=== PATIENT | female | born 1970 ===

== ENCOUNTER 2016-12-10 16:16 | Observation (INO) | payer MEDICAID, OTHER ==
--- NOTE | 2016-12-10 16:48 | ED PDOC ---
Arrival/HPI - General Historian: Patient - General Time Seen by Provider: 12/10/16 16:34 - History of Present Illness Narrative History of Present Illness (Text): 12/10/16 16:41 46 y/o female, pmh including htn/dm/cervical cancer/UTI/PE (resolved)/ pericardial effusion, nkda, c/o lt. sided hip pain started today. Pt. stated that she has lt. hip pain started today, no urinary symptoms, no fever or chills , aggravated by movement and walking, no numbness or tingling, no urinary or bowel incontinence or retention, no other medical or psychological complaints. (Travon Medina) Past Medical History - Provider Review Nursing Documentation Reviewed: Yes - Infectious Disease Hx of Infectious Diseases: None - Tetanus Immunization Tetanus Immunization: Unknown - Past Medical History Past Medical History: No Previous - Cardiac Hx Hypertension: Yes Hx Pacemaker: No - Pulmonary Hx Respiratory Disorders: Yes Hx Pulmonary Embolism: Yes Other/Comment: Pulmonary Emboli - Neurological Hx Paralysis: No - HEENT Hx HEENT Disorder: No - Renal Hx Renal Disorder: Yes Other/Comment: RENAL STENT. HX: HYDRONEPHROSIS BILATERAL"MORE CONCERNING ON THE LEFT" - Endocrine/Metabolic Hx Endocrine Disorders: Yes Hx Diabetes Mellitus Type 1: Yes - Hematological/Oncological Hx Blood Transfusions: Yes Hx Blood Transfusion Reaction: No - Integumentary Hx Dermatological Disorder: No - Musculoskeletal/Rheumatological Hx Musculoskeletal Disorders: No - Gastrointestinal Hx Gastrointestinal Disorders: Yes Hx Colitis: Yes Hx Gastritis: Yes Hx Hemorrhoids: Yes Other/Comment: hemangioma to liver - Genitourinary/Gynecological Hx Genitourinary Disorders: Yes Hx Cervical Cancer: Yes (RADIATION AND CHEMO ONLY-NO SURGERY) Hx Urinary Tract Infection: Yes Other/Comment: Vaginal tumor cancer with radiation - Psychiatric Hx Psychophysiologic Disorder: No Hx Substance Use: No - Past Surgical History Past Surgical History: No Previous - Surgical History Hx Tubal Ligation: Yes Other/Comment: kidney surgery - Anesthesia Hx Anesthesia Reactions: Yes (VOMITING) Hx Malignant Hyperthermia: No - Suicidal Assessment Feels Threatened In Home Enviroment: No Family/Social History - Physician Review Nursing Documentation Reviewed: Yes Family/Social History: Unknown Family HX Smoking Status: Never Smoked Hx Alcohol Use: No Hx Substance Use: No Hx Substance Use Treatment: No Allergies/Home Meds Allergies/Adverse Reactions: Allergies No Known Allergies Allergy (Verified 12/10/16 16:43) Home Medications: Home Meds Medication Instructions Recorded Confirmed Insulin Aspart Prot/Insuln Asp 10 units SC TID 11/12/15 12/10/16 [Novolog Mix 70-30 Vial] Review of Systems - Review of Systems Constitutional: absent: Fatigue, Fevers Eyes: absent: Vision Changes ENT: absent: Hearing Changes Respiratory: absent: SOB, Cough Cardiovascular: absent: Chest Pain Gastrointestinal: absent: Abdominal Pain, Nausea, Vomiting Musculoskeletal: Arthralgias, Myalgias. absent: Back Pain, Neck Pain, Joint Swelling Skin: absent: Rash, Pruritis, Skin Lesions, Laceration Neurological: absent: Headache, Dizziness, Focal Weakness, Gait Changes, Speech Changes, Facial Droop Physical Exam Temperature: Afebrile Blood Pressure: Hypertensive Pulse: Regular Respiratory Rate: Normal Appearance: Positive for: Well-Appearing, Non-Toxic, Comfortable Pain Distress: Moderate Mental Status: Positive for: Alert and Oriented X 3 - Systems Exam Head: Present: Atraumatic, Normocephalic Pupils: Present: PERRL Extroacular Muscles: Present: EOMI Conjunctiva: Present: Normal Mouth: Present: Moist Mucous Membranes Neck: Present: Normal Range of Motion Respiratory/Chest: Present: Clear to Auscultation, Good Air Exchange. No: Respiratory Distress, Accessory Muscle Use Cardiovascular: Present: Regular Rate and Rhythm, Normal S1, S2. No: Murmurs Abdomen: Present: Normal Bowel Sounds. No: Tenderness, Distention, Peritoneal Signs, Rebound, Guarding Back: Present: Normal Inspection. No: CVA Tenderness, Midline Tenderness, Paraspinal Tenderness, Pain with Leg Raise Upper Extremity: Present: Normal Inspection. No: Cyanosis, Edema Lower Extremity: Present: Normal Inspection, Other (mild +ttp on the lt. hip region with no visible rash plus no deformity, no crepitus, fully active and passive movement without limitation, no limping when walking. ). No: Edema Neurological: Present: GCS=15, CN II-XII Intact, Speech Normal Skin: Present: Warm, Dry, Normal Color. No: Rashes Psychiatric: Present: Alert, Oriented x 3, Normal Insight, Normal Concentration Vital Signs Temp Pulse Resp BP Pulse Ox 12/10/16 20:55 71 16 151/99 H 100 12/10/16 19:35 78 16 185/95 H 100 12/10/16 16:46 98.8 F 95 H 18 162/92 H 98 Medical Decision Making - Lab Interpretations I have reviewed the lab results: Yes Interpretation: Abnormal lab values (K+ 5.4, Cl 108, BUN 27, Creatine 1.5, hgb 8.2, +UTI) - RAD Interpretation Flight Radio Operator: Radiologist - EKG Interpretation Interpreted by ED Physician: Yes Type: 12 lead EKG ED Course and Treatment: I was available for consultation during PA evaluation. The chart reviewed by me , and I agree with disposition. The documented history was done by the physician radiology equipment servicer. The documented physical exam was done by the physician radiology equipment servicer. The documented procedures were done by the physician radiology equipment servicer. (Raúl Griffin) 12/10/16 16:53 -labs/ua -IV toradol/IVF -observe and reassess 12/10/16 19:39 -Labs show -Urinalysis show +leuk, IV rocephin ordered. -EKG: NSR @ 71 BPM, no ST elevation or depression, no T wave inversion. -Kayaxylate ordered. -Pt. has no pmd to follow up, anemia likely due to the chronic renal disease or board certified family physician, borderline anemia for transfusion. -I discussed with Dr. Ness and the medical social worker Dr. Jos Howard which they are awared of the care, discussed labs, agreed on the admission. -I discussed with Dr. Griffin and he agreed on the admission order. 12/10/16 19:49 (Travon Medina) - Lab Interpretations Lab Results: 12/10/16 17:55 12/10/16 17:55 Lab Results 12/10/16 19:00: Urine Color Yellow, Urine Appearance Sl cloudy, Urine pH 6.0, Ur Specific [place] 1.020, Urine Protein 100 H, Urine Glucose (UA) Negative, Urine Ketones Negative, Urine Blood Large H, Urine Nitrate Negative, Urine Bilirubin Negative, Urine Urobilinogen 0.2, Ur Leukocyte Esterase Trace H, Urine RBC Tntc, Urine WBC 2 - 5, Ur Epithelial Cells 6 - 8, Urine Bacteria Trace 12/10/16 17:55: Sodium 139, Potassium 5.4 H, Chloride 108 H, Carbon Dioxide 25, Anion Gap 11, BUN 27 H, Creatinine 1.5 H, Est GFR ( Amer) 45, Est GFR ( Non-Af Amer) 38, Random Glucose 208 H, Calcium 9.5, Total Bilirubin 0.4, AST 25 , ALT 21, Alkaline Phosphatase 96, Total Protein 7.4, Albumin 3.8, Globulin 3.6 , Albumin/Globulin Ratio 1.1 12/10/16 17:55: WBC 4.2 L, RBC 3.65, Hgb 8.2 L, Hct 27.0 L, MCV 74.0 L, MCH 22.5 L, MCHC 30.4 L, RDW 15.5 H, Plt Count 168, MPV 11.2 H, Gran % 52.9, Lymph % (Auto) 35.8 H, [place] % (Auto) 6.6 H, Eos % (Auto) 4.5, Baso % (Auto) 0.2, Gran # 2.23, Lymph # 1.5, [place] # 0.3, Eos # 0.2, Baso # 0.01 - RAD Interpretation Radiology Orders: 12/10/16 19:06 CHEST PORTABLE [RAD] Stat 12/10/16 19:39 Hip Bilateral [HIP MIN 3V W/ PELVIS SILVIA] [RAD] Stat no active disease. (Travon Medina) - EKG Interpretation EKG Interpretation (Text): 12/10/16 19:39 NSR @ 71 BPM, no ST elevation or depression, no T wave inversion. (Travon Medina) - Medication Orders Current Medication Orders: Acetaminophen (Tylenol 325mg Tab) 650 mg PO Q6H PRN PRN Reason: Fever >100.4 F Albuterol Sulfate (Albuterol 0.083% Inhal Cyn (2.5 Mg/3 Ml) Ud) 2.5 mg IH Q2H PRN PRN Reason: Shortness of Breath Atorvastatin Calcium (Lipitor) 20 mg PO HS PORSHA Last Admin: 12/10/16 22:54 Dose: 20 mg Famotidine (Pepcid) 20 mg PO BID PORSHA Last Admin: 12/11/16 11:03 Dose: 20 mg Sodium Chloride (Sodium Chloride 0.9%) 1,000 mls @ 100 mls/hr IV .Q10H PORSHA Last Admin: 12/10/16 20:55 Dose: 100 mls/hr Insulin Human Lispro (Humalog) 0 units SC ACHS PORSHA PRN Reason: Protocol Last Admin: 12/11/16 13:10 Dose: 3 units Metoprolol Tartrate (Lopressor) 100 mg PO BID COUNT INCLUDES THE [facility] Last Admin: 12/11/16 11:02 Dose: 100 mg Ondansetron HCl (Zofran Inj) 4 mg IVP Q6H PRN PRN Reason: Nausea/Vomiting Last Admin: 12/11/16 05:13 Dose: 4 mg Polysaccharide Iron Complex (Ferrex-150) 150 mg PO BID COUNT INCLUDES THE [facility] Last Admin: 12/11/16 11:00 Dose: 150 mg Senna/Docusate Sodium (Senokot S 50 Mg-8.6 Mg) 1 tab PO DAILY COUNT INCLUDES THE [facility] Last Admin: 12/11/16 11:04 Dose: 1 tab Tamsulosin HCl (Flomax) 0.4 mg PO DAILY COUNT INCLUDES THE [facility] Last Admin: 12/11/16 11:00 Dose: 0.4 mg Tramadol HCl (Ultram) 50 mg PO Q8H PRN PRN Reason: Pain, moderate (4-7) Discontinued Medications Sodium Chloride (Sodium Chloride 0.9%) 500 mls @ 999 mls/hr IV .Q31M STA Stop: 12/10/16 17:19 Last Admin: 12/10/16 17:59 Dose: 999 mls/hr Ceftriaxone Sodium (Rocephin 1 Gram Ivpb) 1 gm in 100 mls @ 200 mls/hr IVPB STAT STA PRN Reason: Protocol Stop: 12/10/16 20:06 Last Admin: 12/10/16 20:55 Dose: 200 mls/hr Ketorolac Tromethamine (Toradol) 30 mg IVP STAT STA Stop: 12/10/16 16:50 Last Admin: 12/10/16 19:00 Dose: 30 mg Metoprolol Tartrate (Lopressor) 100 mg PO ONCE ONE Stop: 12/10/16 22:36 Last Admin: 12/10/16 22:54 Dose: 100 mg Sodium Polystyrene Sulfonate (Kayexalate Oral Susp) 15 gm MT STAT STA Stop: 12/10/16 19:07 Last Admin: 12/10/16 19:35 Dose: 15 gm - PA / PRODUCT DEVELOPMENT CHEMIST / Resident Statement / has reviewed & agrees with the documentation as recorded. Disposition/Present on Arrival - Present on Arrival Any Indicators Present on Arrival: No History of DVT/PE: Yes History of Uncontrolled Diabetes: Yes Urinary Catheter: No History Surgical Site Infection Following: None - Disposition Have Diagnosis and Disposition been Completed?: Yes Disposition Time: 16:53 Patient Plan: Admission - Disposition Diagnosis: Anemia, Dehydration, Renal insufficiency, Hyperkalemia Disposition: HOSPITALIZED Patient Problems: Current Active Problems Problem Status Onset Anemia Acute Dehydration Acute Hyperkalemia Acute Renal insufficiency Acute Condition: STABLE
[2016-12-10] MEDS ORDERED: Sodium Chloride 0.9% 500 ML IV STA (16:49)
[2016-12-10 18:02] LABS: ADD MANUAL DIFF? NO
[2016-12-10 18:07] LABS: BASO # 0.01 K/mm3 (0.0-2.0); BASO % 0.2 % (0.0-3.0); EOS # 0.2 (0.0-0.7); EOS % 4.5 % (1.5-5.0); GRAN # 2.23 (1.4-6.5); GRAN % 52.9 % (50.0-68.0); LYMPH # 1.5 (1.2-3.4); LYMPH % 35.8 % (22.0-35.0); MEAN CORPUSCULAR HEMOGLOBIN 22.5 pg (25.0-35.0); MEAN CORPUSCULAR HGB CONC 30.4 g/dl (31.0-37.0); MEAN PLATELET VOLUME 11.2 fl (7.0-11.0); MONO # 0.3 (0.1-0.6); MONO % 6.6 % (1.0-6.0); PLATELET COUNT 168 10^3/uL (120.0-450.0); RED CELL DISTRIBUTION WIDTH 15.5 % (11.5-14.5); WHITE BLOOD COUNT 4.2 10^3/ul (4.5-11.0)
[2016-12-10 18:45] LABS: ALB/GLOB RATIO 1.1 (1.1-1.8); BILIRUBIN,TOTAL 0.4 mg/dL (0.2-1.3); CALCIUM 9.5 mg/dL (8.4-10.5); POTASSIUM 5.4 mmol/L (3.6-5.0); TOTAL PROTEIN 7.4 g/dL (5.8-8.3)
[2016-12-10] MEDS ORDERED: Sod Polystyrene Sulf 15 gm/60 ml Oral Susp PR STA (19:06)
[2016-12-10 19:19] LABS: URINE BILIRUBIN NEGATIVE (NEGATIVE); URINE BLOOD LARGE (NEGATIVE); URINE GLUCOSE (UA) NEGATIVE (NEGATIVE); URINE KETONE NEGATIVE (NEGATIVE); URINE LEUKOCYTE ESTERASE TRACE Leu/uL (NEGATIVE); URINE PROTEIN 100 mg/dL (<30 mg/dL); URINE UROBILINOGEN 0.2 E.U./dL (<1 E.U./dL)
[2016-12-10 19:20] LABS: URINE APPEARANCE SL CLOUDY (CLEAR); URINE COLOR YELLOW (YELLOW)
[2016-12-10] MEDS ORDERED: Albuterol 0.083% Inhal Sol (2.5 mg/3 mL) UD IH PRN (19:36)
[2016-12-10] MEDS ORDERED: cefTRIAXone 1 gm 1 GM/100 ML BAG IVPB STA (19:37)
--- NOTE | 2016-12-10 19:44 | CP.PCM.HP ---
Addendum entered and electronically signed by Jos Nieves DO 12/10/16 20:37: Previous CT Scan from 07/03 shows severe bilateral hydronephroses s/p b/l ureteral stents Hepatic mass identified; no change in size from previous and has been diagnosed in the past as a benign cavernous hemanioma Patient has IVC Filter as well Original Note: <Jos Nieves - Last Filed: 12/10/16 20:11> History of Present Illness - History of Present Illness History of Present Illness: CC: Left Hip Pain and Flank Pain, Nausea/Vomiting x1 This is a 46yo F w/ a PMhx of Bilateral hydronephrosis CKD stage 2; Anemia iron deficiency, Rectosigmoid AVM and lower GI bleed; 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 The patient states that this pain feels different than when she has renal calculi and infections which she has had in the past, but still has flank pain as well. She rates the pain as 4/10, is still able to ambulate without issue, describes it has a dull non radiating pain. She also states she feels nauseus and has vomited x1 NBNB. She denies all other symptoms; denies fevers/chilla, ANGELA, CP, SOB, abdominal pain, diarrhea, dysuria/freq/urg, or lower extremity pain/swelling. Denies blood per rectum but has also not been taking her iron pills, or losartan for 6+ months; also confirmed with notes from outpatient [facility]. PMhx: Bilateral hydronephrosis CKD stage 2; Rectosigmoid AVM and lower GI bleed ; Squamous cell carcinoma of the cervix s/p chemoradiotherapy and conization in 2016 still with uterus and ovaries, DM on insulin, HTN, gastritis and chronic non-compliance, anemia iron deficiency Surgeries: tubal ligation, colonoscopy to fix rectosigmoid AVM, conization of cervix Famhx: denies Meds: Insulin 10 units TID before meals, Losartan 100mg (not taking), Niferux ( not taking), Simvastatin (not taking) checked records at [facility] outpatient clinic. Patient has history of chronic medical non compliance Allergies: Denies Social: Never smoked, no EtOH, denies any illicit drug use, lives at home unemployed taking care of 4 children; only been 4 times Present on Admission - Present on Admission Any Indicators Present on Admission: No History of DVT/PE: No History of Uncontrolled Diabetes: Yes Urinary Catheter: No Decubitus Ulcer Present: No Past Patient History - Infectious Disease Hx of Infectious Diseases: None - Tetanus Immunizations Tetanus Immunization: Unknown - Past Medical History & Family History Past Medical History?: Yes - Past Social History Smoking Status: Never Smoked - CARDIAC Hx Hypertension: Yes Hx Pacemaker: No - PULMONARY Hx Respiratory Disorders: Yes Hx Pulmonary Embolism: Yes Other/Comment: Pulmonary Emboli - NEUROLOGICAL Hx Paralysis: No - HEENT Hx HEENT Problems: No - RENAL Hx Chronic Kidney Disease: Yes Other/Comment: RENAL STENT. 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 - GENITOURINARY/GYNECOLOGICAL Hx Genitourinary Disorders: Yes Hx Cervical Cancer: Yes (RADIATION AND CHEMO ONLY-NO SURGERY) Hx Urinary Tract Infection: Yes Other/Comment: Vaginal tumor cancer with radiation - PSYCHIATRIC Hx Psychophysiologic Disorder: No Hx Substance Use: No - SURGICAL HISTORY Hx Tubal Ligation: Yes Other/Comment: kidney surgery - ANESTHESIA Hx Anesthesia Reactions: Yes (VOMITING) Hx Malignant Hyperthermia: No Meds Allergies/Adverse Reactions: Allergies Allergy/AdvReac Type Severity Reaction Status Date / Time No Known Allergies Allergy Verified 12/10/16 16:43 Physical Exam - Constitutional Appears: Well, Non-toxic Additional comments: Obese woman resting comfortably in bed speaking coherently in no acute distress - Head Exam Head Exam: ATRAUMATIC - Eye Exam Eye Exam: EOMI, Normal appearance, PERRL Pupil Exam: NORMAL ACCOMODATION, PERRL - ENT Exam ENT Exam: Mucous Membranes Moist - Neck Exam Neck exam: Positive for: Full Rom. Negative for: Lymphadenopathy - Respiratory Exam Respiratory Exam: Clear to Auscultation Bilateral, NORMAL BREATHING PATTERN. absent: Rales, Rhonchi, Wheezes - Cardiovascular Exam Cardiovascular Exam: REGULAR RHYTHM, +S1, +S2. absent: Tachycardia - GI/Abdominal Exam GI & Abdominal Exam: Normal Bowel Sounds, Soft. absent: Tenderness - Rectal Exam Rectal Exam: Deferred - Extremities Exam Extremities exam: Positive for: full ROM, normal capillary refill, normal inspection, pedal pulses present. Negative for: calf tenderness, joint swelling , pedal edema, tenderness Additional comments: Patient has FROM in hips b/l, no pain at hip joint line, no sign of puncture/ wound/bite or fall, patient is able to ambulate although there is a slight limp on the left side - Back Exam Back exam: NORMAL INSPECTION. absent: CVA tenderness (L), CVA tenderness (R) - Neurological Exam Neurological exam: Alert, CN II-XII Intact, Oriented x3 - Psychiatric Exam Psychiatric exam: Normal Affect - Skin Skin Exam: Warm Results - Vital Signs Recent Vital Signs: Last Vital Signs Temp 98.8 F 12/10/16 16:46 Pulse 78 12/10/16 19:35 Resp 16 12/10/16 19:35 BP 185/95 H 12/10/16 19:35 Pulse Ox 100 12/10/16 19:35 - Labs Result Diagrams: 12/10/16 17:55 12/10/16 17:55 Labs: Laboratory Results - last 24 hr 12/10/16 12/10/16 12/10/16 17:55 17:55 19:00 WBC 4.2 L RBC 3.65 Hgb 8.2 L Hct 27.0 L MCV 74.0 L MCH 22.5 L MCHC 30.4 L RDW 15.5 H Plt Count 168 MPV 11.2 H Gran % 52.9 Lymph % (Auto) 35.8 H [place] % (Auto) 6.6 H Eos % (Auto) 4.5 Baso % (Auto) 0.2 Gran # 2.23 Lymph # 1.5 [place] # 0.3 Eos # 0.2 Baso # 0.01 Sodium 139 Potassium 5.4 H Chloride 108 H Carbon Dioxide 25 Anion Gap 11 BUN 27 H Creatinine 1.5 H Est GFR ( Amer) 45 Est GFR (Non-Af Amer) 38 Random Glucose 208 H Calcium 9.5 Total Bilirubin 0.4 AST 25 ALT 21 Alkaline Phosphatase 96 Total Protein 7.4 Albumin 3.8 Globulin 3.6 Albumin/Globulin Ratio 1.1 Urine Color Yellow Urine Appearance Sl cloudy Urine pH 6.0 Ur Specific [place] 1.020 Urine Protein 100 H Urine Glucose (UA) Negative Urine Ketones Negative Urine Blood Large H Urine Nitrate Negative Urine Bilirubin Negative Urine Urobilinogen 0.2 Ur Leukocyte Esterase Trace H Assessment & Plan - Assessment and Plan (Free Text) Assessment: 46yo F admitted for Left Hip Pain/Flank Pain Left Hip Pain/Flank Pain -f/u results from b/l hip x-ray; should be both standing and laying down as patient is obese and likely has OA and in order to assess properly needs weight bearing X-Rays -CT Abdomen and Pelvis w/o contrast to assess for stones; patient has no current urinary symptoms but has not followed up with outpatient urology because "it's taking too long and I don't want to wait" -Tramadol for pain; patient has CKD stage 2 and NSAIDs are contraindicated -IVF 100ml/hr NS; trend CMP Bilateral hydronephrosis and CKD stage 2; Chronic -Dr. Harden has been assessing -f/u CT scan abd/pelvis -IVF; recheck CMP tomorrow -avoid nephrotoxic agents -Monitor John's Rectosigmoid AVM and lower GI bleed -holding DVT prophylaxis Anemia; Chronic; Iron Deficiency -Hbg currently 8.2; near baseline -Type and Screen ordered; monitor CBC -PO Iron daily -Stool softener Hyperkalemia; Acute -Patient is s/p Kayhexalate in ER -will monitor -EKG does not show any signs of worrisome hyperkalemia and patient is asymptomatic otherwise Squamous cell carcinoma of the cervix s/p chemoradiotherapy and resection in 2016 still with uterus and ovaries -patient is up to date on pap smears as per records -stable DM on insulin; chronic and uncontrolled -continue with home insulin 10 units TID -RISS coverage HTN; uncontrolled -increased metoprolol to 100mg BID -100mg daily of Losartan; patient has not been taking gastritis -Pepcid PO BID chronic non-compliance Proph Pepcid SCD OOB encouraged Incentive Spirometry Heart Healthy Diet Case Discussed with Dr. Grover Nieves PGY1 Night Float Decision To Admit - Pt Status Changed To: Hospital Disposition Of: Observation - . Bed Request Type: Med/Surg Admitting Physician: Devaughn Ness <Devaughn Ness - Last Filed: 12/11/16 05:31> Results - Vital Signs Recent Vital Signs: Last Vital Signs Temp 97.8 F 12/10/16 23:05 Pulse 74 12/10/16 23:05 Resp 18 12/10/16 23:05 BP 160/90 H 12/10/16 23:05 Pulse Ox 100 12/10/16 20:55 - Labs Result Diagrams: 12/10/16 17:55 12/10/16 17:55 Labs: Laboratory Results - last 24 hr 12/10/16 12/10/16 12/10/16 20:00 20:00 22:18 PT 10.4 INR 0.96 POC Glucose (mg/dL) 181 H Blood Type A POSITIVE Antibody Screen Negative BBK History Checked Patient has bt 12/10/16 12/11/16 23:56 02:13 PT INR POC Glucose (mg/dL) 388 H 307 H Blood Type Antibody Screen BBK History Checked Attending/Attestation - Attestation I have personally seen and examined this patient.: Yes I have fully participated in the care of the patient.: Yes I have reviewed all pertinent clinical information: Yes Notes (Text): 12/11/16 05:29 Patient was seen when she was in the ER . Agree with history, physical examination, assessment and plan.
[2016-12-10 19:46] LABS: URINE BACTERIA TRACE (NEG); URINE RBC TNTC /hpf (0-2)
[2016-12-10 20:45] LABS: INR 0.96 (0.93-1.08)
[2016-12-10] MEDS: Sodium Chloride 0.9% 1,000 ML IV SCH (20:55)
[2016-12-10] MEDS: INSULIN LISPRO 1 UNIT/0.01 ML SC SCH (22:19)
--- NOTE | 2016-12-10 22:40 | CT ---
EXAM: CT Abdomen and Pelvis Without Intravenous Contrast CLINICAL HISTORY: 46 years old, female; Pain; Abdominal pain; Flank; Other: Bialteral; Additional info: Flank pain TECHNIQUE: Axial computed tomography images of the abdomen and pelvis without intravenous contrast. This CT exam was performed using one or more of the following dose reduction techniques: automated exposure control, adjustment of the mA and/or kV according to patient size, and/or use of iterative reconstruction technique. Coronal and sagittal reformatted images were created and reviewed. COMPARISON: CT - ABD PELVIS W/O PO OR IV CONT 07/02/2016 4:48:31 PM FINDINGS: Lower thorax: The bilateral lung bases are clear. ABDOMEN: Liver: No acute findings Gallbladder and bile ducts: No acute finding. No calcified stones. No intra-extrahepatic biliary ductal dilation. Pancreas: Limited evaluation secondary to the lack of intravenous contrast. Spleen: No acute findings. Adrenals: No acute findings. Kidneys and ureters: Bilateral double-J stents are in place, with the proximal pigtails along the distal renal pelvis, and in the distal pigtails within the patient's bladder. Moderate left and mild right sided hydronephrosis is present. This finding has worsened on the left, but improved within the right kidney, since prior examination. PELVIS: Bladder: No acute findings. Reproductive: No acute findings. Appendix: The air filled appendix is of normal-caliber (series 2, image 107). ABDOMEN and PELVIS: Stomach and bowel: No acute findings. Peritoneum: No acute findings. Lymph nodes: Limited evaluation without intravenous contrast. Vasculature: No aortic aneurysm. A filter is identified within the inferior vena cava. Bones: No acute fracture. IMPRESSION: Moderate left and mild right-sided hydronephrosis, despite bilateral double-J stents. This finding has worsened on the left since the prior examination but improved within the right kidney, as detailed above.
[2016-12-10 23:33] VITALS: BMI 30.9
[2016-12-11 07:45] LABS: ADD MANUAL DIFF? NO
[2016-12-11 07:48] LABS: BASO # 0.01 K/mm3 (0.0-2.0); BASO % 0.3 % (0.0-3.0); EOS # 0.3 (0.0-0.7); EOS % 6.7 % (1.5-5.0); GRAN % 34.7 % (50.0-68.0); HEMATOCRIT 25.3 % (36.0-48.0); LYMPH # 1.9 (1.2-3.4); LYMPH % 49.7 % (22.0-35.0); MEAN CELL VOLUME 74.2 fL (80.0-105.0); MEAN CORPUSCULAR HEMOGLOBIN 22.6 pg (25.0-35.0); MEAN CORPUSCULAR HGB CONC 30.4 g/dl (31.0-37.0); MEAN PLATELET VOLUME 10.5 fl (7.0-11.0); MONO # 0.3 (0.1-0.6); MONO % 8.6 % (1.0-6.0); PLATELET COUNT 149 10^3/uL (120.0-450.0); RED CELL DISTRIBUTION WIDTH 15.7 % (11.5-14.5); WHITE BLOOD COUNT 3.7 10^3/ul (4.5-11.0)
--- NOTE | 2016-12-11 07:57 | RAD ---
HISTORY: medical clearance COMPARISON: No prior. FINDINGS: LUNGS: No active pulmonary disease. PLEURA: No significant pleural effusion identified, no pneumothorax apparent. CARDIOVASCULAR: Normal. OSSEOUS STRUCTURES: No significant abnormalities. VISUALIZED UPPER ABDOMEN: Normal. OTHER FINDINGS: None. IMPRESSION: No active disease.
--- NOTE | 2016-12-11 07:58 | RAD ---
PROCEDURE: Radiographs of the pelvis and bilateral hips HISTORY: pain COMPARISON: None. FINDINGS: BONES: Pelvis: Unremarkable. Right hip:Unremarkable. Left hip:Unremarkable. JOINTS: Right hip: Unremarkable. Left hip: Unremarkable. Sacroiliac Joints: Unremarkable. Pubic symphysis: Unremarkable. SOFT TISSUES: Normal. OTHER FINDINGS: None. IMPRESSION: Unremarkable radiographs of the hips and pelvis.
[2016-12-11 08:04] LABS: BILIRUBIN,TOTAL 0.3 mg/dL (0.2-1.3); CALCIUM 8.5 mg/dL (8.4-10.5); POTASSIUM 4.8 mmol/L (3.6-5.0); TOTAL PROTEIN 6.1 g/dL (5.8-8.3)
[2016-12-11] MEDS: Insulin Human NPH/Reg 70/30 Vial(3 ml) SC SCH ×3 (09:11→17:48)
[2016-12-11 09:33] VITALS: O2SAT 98
--- NOTE | 2016-12-11 09:54 | CARD ---
APPROVED REPORT EKG Measurement Heart [id number] <Conclusion> Normal sinus rhythm Normal ECG
[2016-12-11] MEDS: Iron Complex Polysacch 150mg Cap PO SCH ×2 (11:00→17:48)
[2016-12-11] MEDS: INSULIN LISPRO 1 UNIT/0.01 ML SC SCH ×5 (11:02→23:00)
[2016-12-11] MEDS: Docusate-Senna 50 mg-8.6 mg Tab PO SCH (11:04)
--- NOTE | 2016-12-11 12:49 | CP.PCM.PN ---
<[place] - Last Filed: 12/11/16 12:49> Subjective - Date & Time of Evaluation Date of Evaluation: 12/11/16 Time of Evaluation: 12:50 - Subjective Subjective: Med progress note. Attending: Dr. Bal Pt seen/examined at bedside. No acute distress. No events overnight. Pt feeling much better. Pt with b/l hydronephrosis, urology consult pending. No fevers, chills, vomiting, diarrhea. Objective - Vital Signs/Intake and Output Vital Signs (last 24 hours): Temp Pulse Resp BP Pulse Ox 97.4 F L 71 17 187/98 H 98 12/11/16 09:31 12/11/16 11:02 12/11/16 09:31 12/11/16 11:02 12/11/16 09:31 Intake and Output: 12/11/16 12/11/16 06:59 18:59 Intake Total 480 Output Total 850 Balance -370 - Medications Medications: Current Medications Acetaminophen (Tylenol 325mg Tab) 650 mg PO Q6H PRN PRN Reason: Fever >100.4 F Albuterol Sulfate (Albuterol 0.083% Inhal Cyn (2.5 Mg/3 Ml) Ud) 2.5 mg IH Q2H PRN PRN Reason: Shortness of Breath Atorvastatin Calcium (Lipitor) 20 mg PO HS [facility] Last Admin: 12/10/16 22:54 Dose: 20 mg Famotidine (Pepcid) 20 mg PO BID [facility] Last Admin: 12/11/16 11:03 Dose: 20 mg Sodium Chloride (Sodium Chloride 0.9%) 1,000 mls @ 100 mls/hr IV .Q10H [facility] Last Admin: 12/10/16 20:55 Dose: 100 mls/hr Insulin Human Lispro (Humalog) 0 units SC ACHS [facility] PRN Reason: Protocol Last Admin: 12/11/16 11:02 Dose: Not Given Metoprolol Tartrate (Lopressor) 100 mg PO BID [facility] Last Admin: 12/11/16 11:02 Dose: 100 mg Ondansetron HCl (Zofran Inj) 4 mg IVP Q6H PRN PRN Reason: Nausea/Vomiting Last Admin: 12/11/16 05:13 Dose: 4 mg Polysaccharide Iron Complex (Ferrex-150) 150 mg PO BID [facility] Last Admin: 12/11/16 11:00 Dose: 150 mg Senna/Docusate Sodium (Senokot S 50 Mg-8.6 Mg) 1 tab PO DAILY [facility] Last Admin: 12/11/16 11:04 Dose: 1 tab Tamsulosin HCl (Flomax) 0.4 mg PO DAILY [facility] Last Admin: 12/11/16 11:00 Dose: 0.4 mg Tramadol HCl (Ultram) 50 mg PO Q8H PRN PRN Reason: Pain, moderate (4-7) - Labs Labs: 12/11/16 07:00 12/11/16 07:30 PT 10.4 Seconds (9.9-11.8) 12/10/16 20:00 INR 0.96 (0.93-1.08) 12/10/16 20:00 - Constitutional Appears: Non-toxic, No Acute Distress - Head Exam Head Exam: ATRAUMATIC, NORMAL INSPECTION, NORMOCEPHALIC - Eye Exam Eye Exam: EOMI - ENT Exam ENT Exam: Mucous Membranes Moist - Neck Exam Neck Exam: Full ROM, Normal Inspection - Respiratory Exam Respiratory Exam: NORMAL BREATHING PATTERN. absent: Respiratory Distress - Cardiovascular Exam Cardiovascular Exam: +S1, +S2 - GI/Abdominal Exam GI & Abdominal Exam: Soft, Normal Bowel Sounds. absent: Tenderness - Extremities Exam Extremities Exam: Full ROM, Normal Inspection - Back Exam Back Exam: NORMAL INSPECTION - Neurological Exam Neurological Exam: Alert, Awake, Oriented x3 - Psychiatric Exam Psychiatric exam: Normal Affect, Normal Mood - Skin Skin Exam: Dry, Intact, Normal Color, Warm Assessment and Plan - Assessment and Plan (Free Text) Assessment: This is a 46 yo female admitted for Left Hip Pain/Flank Pain Left Hip Pain/Flank Pain -hip x ray wnl -CT Abdomen and Pelvis w/o contrast shows b/l hydronephrosis (please see full report) -Tramadol for pain; patient has CKD stage 2 and NSAIDs are contraindicated -IVF 100ml/hr NS; trend CMP -urology consult. recs appreciated. Bilateral hydronephrosis and CKD stage 2; Chronic -Dr. 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 Bal <Valeriano ROJAS,Norbert - Last Filed: 12/11/16 16:10> Objective - Vital Signs/Intake and Output Vital Signs (last 24 hours): Temp Pulse Resp BP Pulse Ox 97.4 F L 71 17 187/98 H 98 12/11/16 09:31 12/11/16 11:02 12/11/16 09:31 12/11/16 11:02 12/11/16 09:31 Intake and Output: 12/11/16 12/11/16 06:59 18:59 Intake Total 1280 Output Total 850 Balance 430 - Medications Medications: Current Medications Acetaminophen (Tylenol 325mg Tab) 650 mg PO Q6H PRN PRN Reason: Fever >100.4 F Albuterol Sulfate (Albuterol 0.083% Inhal Cyn (2.5 Mg/3 Ml) Ud) 2.5 mg IH Q2H PRN PRN Reason: Shortness of Breath Atorvastatin Calcium (Lipitor) 20 mg PO HS [facility] Last Admin: 12/10/16 22:54 Dose: 20 mg Famotidine (Pepcid) 20 mg PO BID [facility] Last Admin: 12/11/16 11:03 Dose: 20 mg Sodium Chloride (Sodium Chloride 0.9%) 1,000 mls @ 100 mls/hr IV .Q10H [facility] Last Admin: 12/10/16 20:55 Dose: 100 mls/hr Insulin Human Lispro (Humalog) 0 units SC ACHS [facility] PRN Reason: Protocol Last Admin: 12/11/16 13:10 Dose: 3 units Metoprolol Tartrate (Lopressor) 100 mg PO BID [facility] Last Admin: 12/11/16 11:02 Dose: 100 mg Ondansetron HCl (Zofran Inj) 4 mg IVP Q6H PRN PRN Reason: Nausea/Vomiting Last Admin: 12/11/16 05:13 Dose: 4 mg Polysaccharide Iron Complex (Ferrex-150) 150 mg PO BID [facility] Last Admin: 12/11/16 11:00 Dose: 150 mg Senna/Docusate Sodium (Senokot S 50 Mg-8.6 Mg) 1 tab PO DAILY [facility] Last Admin: 12/11/16 11:04 Dose: 1 tab Tamsulosin HCl (Flomax) 0.4 mg PO DAILY [facility] Last Admin: 12/11/16 11:00 Dose: 0.4 mg Tramadol HCl (Ultram) 50 mg PO Q8H PRN PRN Reason: Pain, moderate (4-7) - Labs Labs: 12/11/16 07:00 12/11/16 07:30 PT 10.4 Seconds (9.9-11.8) 12/10/16 20:00 INR 0.96 (0.93-1.08) 12/10/16 20:00 Attending/Attestation - Attestation I have personally seen and examined this patient.: Yes I have fully participated in the care of the patient.: Yes I have reviewed all pertinent clinical information, including history, physical exam and plan: Yes Notes (Text): 12/11/16 16:06 Patient was seen and examined with medical reception specialist .Agreed with resident assessment and plan. 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 Management plan was discussed in detail with patient Education was provided.
[2016-12-11 13:57] LABS: IRON 46 ug/dL (45-180)
[2016-12-11] MEDS: Sodium Chloride 0.9% 1,000 ML IV SCH (17:40)
[2016-12-11 21:47] VITALS: RESP 18
[2016-12-12] MEDS: Sodium Chloride 0.9% 1,000 ML IV SCH ×2 (06:11)
[2016-12-12 08:21] LABS: ADD MANUAL DIFF? NO
[2016-12-12] MEDS: Insulin Human NPH/Reg 70/30 Vial(3 ml) SC SCH ×2 (08:22→12:17)
[2016-12-12] MEDS: INSULIN LISPRO 1 UNIT/0.01 ML SC SCH ×2 (08:23→12:13)
[2016-12-12 08:24] LABS: BASO # 0.02 K/mm3 (0.0-2.0); BASO % 0.6 % (0.0-3.0); EOS # 0.3 (0.0-0.7); EOS % 7.3 % (1.5-5.0); GRAN # 1.04 (1.4-6.5); GRAN % 29.4 % (50.0-68.0); HEMATOCRIT 26.1 % (36.0-48.0); LYMPH % 55.9 % (22.0-35.0); MEAN CORPUSCULAR HEMOGLOBIN 22.7 pg (25.0-35.0); MEAN CORPUSCULAR HGB CONC 30.3 g/dl (31.0-37.0); MEAN PLATELET VOLUME 10.9 fl (7.0-11.0); MONO # 0.2 (0.1-0.6); MONO % 6.8 % (1.0-6.0); PLATELET COUNT 149 10^3/uL (120.0-450.0); RED CELL DISTRIBUTION WIDTH 15.7 % (11.5-14.5); WHITE BLOOD COUNT 3.5 10^3/ul (4.5-11.0)
[2016-12-12 08:37] VITALS: BP 157/98; PULSE 71; TEMP 97.5
[2016-12-12 08:42] LABS: MAGNESIUM 1.2 mg/dL (1.7-2.2)
[2016-12-12] MEDS ORDERED: Magnesium Sulfate 2 GM in Sodium Chloride 0.9% 100 ML IVPB ONE (09:10)
[2016-12-12 09:19] LABS: ALB/GLOB RATIO 0.9 (1.1-1.8); BILIRUBIN,TOTAL 0.3 mg/dL (0.2-1.3); CALCIUM 8.7 mg/dL (8.4-10.5); POTASSIUM 4.3 mmol/L (3.6-5.0); TOTAL PROTEIN 6.6 g/dL (5.8-8.3)
[2016-12-12] MEDS: Iron Complex Polysacch 150mg Cap PO SCH (09:38)
[2016-12-12] MEDS ORDERED: Lidocaine 5% Patch TD SCH (10:15)
[2016-12-12] MEDS: Docusate-Senna 50 mg-8.6 mg Tab PO SCH (10:17)
--- NOTE | 2017-01-09 08:53 | CP.PCM.DIS ---
Provider - Provider Date of Admission: 12/10/16 19:48 Attending physician: Norbert Bal MD Consults: Dr. Harden- Urology Time Spent in preparation of Discharge (in minutes): 45 Hospital Course - Lab Results Lab Results: Most Recent Lab Values WBC 3.5 10^3/ul (4.5-11.0) L 12/12/16 08:00 RBC 3.48 10^6/uL (3.5-6.1) L 12/12/16 08:00 Hgb 7.9 gm/dL (12.0-16.0) L 12/12/16 08:00 Hct 26.1 % (36.0-48.0) L 12/12/16 08:00 MCV 75.0 fL (80.0-105.0) L 12/12/16 08:00 MCH 22.7 pg (25.0-35.0) L 12/12/16 08:00 MCHC 30.3 g/dl (31.0-37.0) L 12/12/16 08:00 RDW 15.7 % (11.5-14.5) H 12/12/16 08:00 Plt Count 149 10^3/uL (120.0-450.0) 12/12/16 08:00 MPV 10.9 fl (7.0-11.0) 12/12/16 08:00 Gran % 29.4 % (50.0-68.0) L 12/12/16 08:00 Lymph % (Auto) 55.9 % (22.0-35.0) H 12/12/16 08:00 Rooks % (Auto) 6.8 % (1.0-6.0) H 12/12/16 08:00 Eos % (Auto) 7.3 % (1.5-5.0) H 12/12/16 08:00 Baso % (Auto) 0.6 % (0.0-3.0) 12/12/16 08:00 Gran # 1.04 (1.4-6.5) L 12/12/16 08:00 Lymph # 2.0 (1.2-3.4) 12/12/16 08:00 Rooks # 0.2 (0.1-0.6) 12/12/16 08:00 Eos # 0.3 (0.0-0.7) 12/12/16 08:00 Baso # 0.02 K/mm3 (0.0-2.0) 12/12/16 08:00 PT 10.4 Seconds (9.9-11.8) 12/10/16 20:00 INR 0.96 (0.93-1.08) 12/10/16 20:00 Sodium 142 mmol/L (132-148) 12/12/16 08:00 Potassium 4.3 mmol/L (3.6-5.0) 12/12/16 08:00 Chloride 111 mmol/L (98-107) H 12/12/16 08:00 Carbon Dioxide 24 mmol/L (21-33) 12/12/16 08:00 Anion Gap 11 (10-20) 12/12/16 08:00 BUN 20 mg/dL (7-21) 12/12/16 08:00 Creatinine 1.2 mg/dL (0.5-1.4) 12/12/16 08:00 Est GFR ( Amer) 59 12/12/16 08:00 Est GFR (Non-Af Amer) 49 12/12/16 08:00 POC Glucose (mg/dL) 97 mg/dL (65-110) 12/12/16 11:10 Random Glucose 135 mg/dL (70-110) H 12/12/16 08:00 Calcium 8.7 mg/dL (8.4-10.5) 12/12/16 08:00 Phosphorus 4.0 mg/dL (2.5-4.5) 12/12/16 08:00 Magnesium 1.2 mg/dL (1.7-2.2) L 12/12/16 08:00 Iron 46 ug/dL (45-180) 12/11/16 07:00 TIBC 290 ug/dL (265-497) 12/11/16 07:00 % Saturation 16 % (20-55) L 12/11/16 07:00 Transferrin 232.71 mg/dL (206-381) 12/11/16 07:00 Ferritin 21.9 ng/mL 12/11/16 07:00 Total Bilirubin 0.3 mg/dL (0.2-1.3) 12/12/16 08:00 AST 20 U/L (15-39) 12/12/16 08:00 ALT 19 U/L (7-56) 12/12/16 08:00 Alkaline Phosphatase 80 U/L (38-133) 12/12/16 08:00 Total Protein 6.6 g/dL (5.8-8.3) 12/12/16 08:00 Albumin 3.2 g/dL (3.0-4.8) 12/12/16 08:00 Globulin 3.4 gm/dL 12/12/16 08:00 Albumin/Globulin Ratio 0.9 (1.1-1.8) L 12/12/16 08:00 Urine Color Yellow (YELLOW) 12/10/16 19:00 Urine Appearance Sl cloudy (CLEAR) 12/10/16 19:00 Urine pH 6.0 (4.7-8.0) 12/10/16 19:00 Ur Specific [place] 1.020 (1.005-1.035) 12/10/16 19:00 Urine Protein 100 mg/dL (<30 mg/dL) H 12/10/16 19:00 Urine Glucose (UA) Negative mg/dL (NEGATIVE) 12/10/16 19:00 Urine Ketones Negative mg/dL (NEGATIVE) 12/10/16 19:00 Urine Blood Large (NEGATIVE) H 12/10/16 19:00 Urine Nitrate Negative (NEGATIVE) 12/10/16 19:00 Urine Bilirubin Negative (NEGATIVE) 12/10/16 19:00 Urine Urobilinogen 0.2 E.U./dL (<1 E.U./dL) 12/10/16 19:00 Ur Leukocyte Esterase Trace [place]/uL (NEGATIVE) H 12/10/16 19:00 Urine RBC Tntc /hpf (0-2) 12/10/16 19:00 Urine WBC 2 - 5 /hpf (0-6) 12/10/16 19:00 Ur Epithelial Cells 6 - 8 /hpf (0-5) 12/10/16 19:00 Urine Bacteria Trace (NEG) 12/10/16 19:00 Blood Type A POSITIVE 12/10/16 20:00 Antibody Screen Negative 12/10/16 20:00 BBK History Checked Patient has bt 12/10/16 20:00 - Hospital Course Hospital Course: Attending: Dr. Bal Consults: Dr. Fina Stable for discharge Procedures- none No complications Date of -72 Date of discharge- 12/11/16 HPI: see h/p Labs: see lab data section DC diagnoses 1. B/L hydronephrosis 2. CKD 3. Anemia 4. Hyperkalemia 5. Lower GI bleed 6. DM on insulin 7. HTN 8. gastritis 9. squamous cell carcinoma of cervix This is a 46 yo female admitted for Left Hip Pain/Flank Pain Left Hip Pain/Flank Pain -hip x ray wnl -CT Abdomen and Pelvis w/o contrast shows b/l hydronephrosis (please see full report) -Tramadol for pain; patient has CKD stage 2 and NSAIDs are contraindicated -IVF 100ml/hr NS; trend CMP -urology consult. recs appreciated. Bilateral hydronephrosis and CKD stage 2; Chronic -Dr. 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 lipitor 20 mg po hs 2. novolog 70/30 10 units tid 3. ferrex 150 mg po bid 4. lidocaine 5 percent, 1 each TD daily 5. lopressor 50 mg po bid 6. zofran 4 po q 8 7. flomax .4 mg po daily 8. tramadol 50 mg po q 8hrs DC instructions Please return if condition worsens. Please f/u with PMD within 1 week. Please f/ u with urology as needed. Please take all home meds as directed. - Date & Time of H&P Date of H&P: 01/09/17 Time of H&P: 19:43 Discharge Exam - Head Exam Head Exam: ATRAUMATIC, NORMAL INSPECTION, NORMOCEPHALIC - Eye Exam Eye Exam: EOMI - ENT Exam ENT Exam: Mucous Membranes Moist - Neck Exam Neck exam: Full Rom, Normal Inspection - Respiratory Exam Respiratory Exam: NORMAL BREATHING PATTERN - Cardiovascular Exam Cardiovascular Exam: REGULAR RHYTHM, +S1, +S2 - GI/Abdominal Exam GI & Abdominal Exam: Normal Bowel Sounds - Extremities Exam Extremities exam: full ROM - Neurological Exam Neurological exam: Alert, CN II-XII Intact - Psychiatric Exam Psychiatric exam: Normal Affect, Normal Mood - Skin Skin Exam: Dry, Intact, Normal Color, Warm Discharge Plan - Discharge Medications Prescriptions: Lidocaine 5% [Lidoderm] 1 ea TD DAILY #30 patch Ondansetron [Zofran] 4 mg PO Q8H #30 tab traMADol [Ultram] 50 mg PO Q8H PRN #9 tab PRN Reason: Pain, Moderate (4-7) - Follow Up Plan Condition: STABLE Disposition: HOME/ ROUTINE Instructions: Iron Rich Diet (GEN), Iron Deficiency Anemia (DC), Hyperkalemia ( DC), Hip Pain (GEN) Additional Instructions: Make Follow up appointment with Dr. Luna office. Follow up with primary physician in 1 week. If you experience any worsening of symptom pain, Nausea ,vomiting contact primary care physician and go to nearest Emergency room .
== END 2016-12-12 17:15 | disposition home or self-care (01) ==
LOC: ED 16:16 → ERH 19:48 → 3RNO 22:26
PROVIDERS: ADMIT Internal Medicine; ATTEND Internal Medicine
DX: D50.9 Iron deficiency anemia, unspecified (principal); E86.0 Dehydration; E87.5 Hyperkalemia; Z85.41 Personal history of malignant neoplasm of cervix uteri; Z92.21 Personal history of antineoplastic chemotherapy; Z92.3 Personal history of irradiation; I12.9 Hypertensive chronic kidney disease with stage 1 through stage 4 chronic kidney disease, or unspecified chronic kidney disease; E10.22 Type 1 diabetes mellitus with diabetic chronic kidney disease; N18.2 Chronic kidney disease, stage 2 (mild); E10.65 Type 1 diabetes mellitus with hyperglycemia; E66.9 Obesity, unspecified; K29.70 Gastritis, unspecified, without bleeding; Z91.19 Patient's noncompliance with other medical treatment and regimen; Z98.51 Tubal ligation status; Z87.442 Personal history of urinary calculi; Z87.440 Personal history of urinary (tract) infections; Z86.711 Personal history of pulmonary embolism; Z79.4 Long term (current) use of insulin; N13.30 Unspecified hydronephrosis; K92.2 Gastrointestinal hemorrhage, unspecified; K64.9 Unspecified hemorrhoids; K52.9 Noninfective gastroenteritis and colitis, unspecified; D18.03 Hemangioma of intra-abdominal structures; R40.2412 Glasgow coma scale score 13-15, at arrival to emergency department; Q27.33 Arteriovenous malformation of digestive system vessel; Z68.31 Body mass index [BMI] 31.0-31.9, adult
CPT/HCPCS: 36415; 71010; 73522; 74176; 80053; 81001; 82728; 82948; 83540; 83735; 84100; 84466; 85025; 85610; 86850; 86900; 87086; 93005; 96361; 96365; 96375; 96376; 97116; 97161; 99284; G0378; G8978; G8979; G8980; J0696; J1885; J2405; J3475; J7040